=== PATIENT | male | born 1940 | race Hispanic/Latino ===

== ENCOUNTER → 2019-01-02 | Day surgery (SDC) | payer MEDICARE ==
[2018-12-31 13:34] LABS: BASOPHILS % 0.6 % (0.0-1.0); EOSINOPHILS # (AUTO) 0.1 (0.0-0.4); EOSINOPHILS % 0.9 % (0.0-6.0); HEMATOCRIT 43.1 % (38.2-49.6); HEMOGLOBIN 14.6 g/dL (14.0-18.0); LYMPHOCYTES # (AUTO) 1.3 (1.0-3.2); LYMPHOCYTES % 20.2 % (18.0-39.1); MEAN CORPUSCULAR HEMOGLOBIN 32.5 pg (28-32); MEAN CORPUSCULAR HGB CONC 33.9 g/dL (31-35); MONOCYTES # (AUTO) 0.6 (0.2-0.8); MONOCYTES % 9.6 % (4.4-11.3); NEUTROPHILS # (AUTO) 4.5 (2.1-6.9); NEUTROPHILS % 68.4 % (38.7-80.0); PLATELET COUNT 139 x10e3/uL (140-360); RED BLOOD COUNT 4.49 x10e6/uL (4.3-5.7); RED CELL DISTRIBUTION WIDTH 14.4 % (11.7-14.4)
[2018-12-31 13:43] LABS: INR 1.15; PROTHROMBIN TIME 15.3 seconds (11.9-14.5)
[2018-12-31 13:44] LABS: PARTIAL THROMBOPLASTIN TIME 28.7 seconds (23.8-35.5)
[2018-12-31 13:48] LABS: ALANINE AMINOTRANSFERASE 23 IU/L (0-55); ALBUMIN 3.8 g/dL (3.5-5.0); ALBUMIN/GLOBULIN RATIO 1.2 (0.8-2.0); ALKALINE PHOSPHATASE 74 IU/L (40-150); ANION GAP 12.7 mmol/L (8-16); BLOOD UREA NITROGEN 17 mg/dL (7-26); BUN/CREATININE RATIO 18 (6-25); CALCIUM 9.4 mg/dL (8.4-10.2); CARBON DIOXIDE 22 mmol/L (22-29); CHLORIDE 108 mmol/L (98-107); CREATININE, SERUM 0.95 mg/dL (0.72-1.25); EST GLOMERULAR FILTRATION RATE > 60 ML/MIN (60-); GLUCOSE 114 mg/dL (74-118); POTASSIUM 3.7 mmol/L (3.5-5.1); SODIUM 139 mmol/L (136-145)
--- NOTE | 2018-12-31 14:20 | Diagnostic Imaging Report ---
EXAMINATION: CHEST 2 VIEWS INDICATION: Pre-admit COMPARISON: None FINDINGS: TUBES and LINES: None. LUNGS: Lungs are moderately inflated. There is no evidence of pneumonia or pulmonary edema. Mild patchy dependent atelectasis. Opacity in the medial aspect of the right lung base likely reflects a combination of overlying ribs and pulmonary vessels. PLEURA: No pleural effusion or pneumothorax. HEART AND MEDIASTINUM: The cardiomediastinal silhouette is unremarkable. The aorta is ectatic with atherosclerotic calcifications. BONES AND SOFT TISSUES: No acute osseous abnormality. Partially seen lumbar spine hardware and lower thoracic spinal stimulator. UPPER ABDOMEN: No free air under the diaphragm. Surgical clips in the upper abdomen. IMPRESSION: No acute radiographic abnormality. Focal opacity in the medial aspect of the right lung base likely reflects a combination of overlying ribs and pulmonary vessels. Suggest follow-up chest radiograph in 3 months to assess for stability. Signed by: Dr. Jad Oconnor MD on 12/31/2018 2:17 PM
[~2019-01-02] MED LIST: ACETAMINOPHEN 1000 MG/100 ML IV ONE; ALLOPURINOL100 MG PO; ATORVASTATIN CA20 MG PO; BUPIVACAINE 0.25% 30ML SDV INJ ONE; BUPROPION HCL100 MG PO; CEFOXITIN 1GM/ D5W 50ML 50 ML IV ONE; FENTANYL CITRATE/PF 100MCG/2 ML INJ ONE; KEFLEX500 MG PO; LIDOCAINE HCL 1% LOCAL INJ 20 ML VIAL ONE; LIDOCAINE HCL 2% LOCAL INJ 5 ML SDV VIAL INJ ONE; LISINOPRIL10 MG PO; NEOSTIGMINE 1 MG/ML 10ML VIAL ONE; OMEPRAZOLE40 MG; ONDANSETRON HCL INJ 2MG/ML 2ML 2 MG/ML VIAL ONE; PAROXETINE HCL20 MG PO; PRIMIDONE1 GM; PROPOFOL IV EMULSION 10 MG/ML 20 ML VIAL ONE; SEVOFLURANE INHAL SOLN 250 ML PEN BTL ONE; TRAZODONE HCL100 MG; TYLENOL # 31 EA PO
--- OUTSIDE RECORDS SUMMARY | 2019-01-02 07:27 | XMS REPORT ---
Author [facility] Address Unknown Phone Unavailable Care Team Providers Care Timber Feller Name Role Phone IRVIN ROLLINS Unavailable Unavailable Problems This patient has no known problems. Allergies, Adverse Reactions, Alerts This patient has no known allergies or adverse reactions. Medications This patient has no known medications. Results Test Description Test Time Test Comments Text Results Atomic Results Result Comments CHEST 2 VIEWS 2018-12-31 14:11:00 [place] [address] Patient Name: CAMACHO GARCIA MR #: [id number] : 1940 Age/Sex: 78/M Req #: [id number] Adm Physician: Ordered by: IRVIN ROLLINS MD Report #: [id number] Location: OR Room/Bed: Procedure: [id number] DX/CHEST 2 VIEWS Exam Date: 12/31/18 Exam Time: 1300 REPORT STATUS: Signed EXAMINATION: CHEST 2 VIEWS INDICATION: Pre-admit COMPARISON: None FINDINGS: TUBES and LINES: None. LUNGS: Lungs are moderately inflated. There is no evidence of pneumonia or pulmonary edema. Mild patchy dependent atelectasis. Opacity in the medial aspect of the right lung base likely reflects a combination of overlying ribs and pulmonary vessels. PLEURA: No pleural effusion or pneumothorax. HEART AND MEDIASTINUM: The cardiomediastinal silhouette is unremarkable. The aorta is ectatic with atherosclerotic calcifications. BONES AND SOFT TISSUES: No acute osseous abnormality. Partially seen lumbar spine hardware and lower thoracic spinal stimulator. UPPER ABDOMEN: No free air under the diaphragm. Surgical clips in the upper abdomen. IMPRESSION: No acute radiographic abnormality. Focal opacity in the medial aspect of the right lung base likely reflects a combination of overlying ribs and pulmonary vessels. Suggest follow-up chest radiograph in 3 months to assess for stabili ty. Signed by: Dr. Birdie Adame MD on 12/31/2018 2:17 PM Dictated By: BIRDIE ADAME MD [id number] Transcribed By: OMAR on 12/31/18 1417 COPY TO: IRVIN ROLLINS MD
--- OUTSIDE RECORDS SUMMARY | 2019-01-02 07:27 | XMS REPORT | Clinical Summary ---
Author Author [facility] Address Unknown Phone Unavailable Care Team Providers Care Log Feeder Name Role Phone Rk Rose MD PCP Allergies Comments Active Allergy Reactions Severity Noted Date No Known Drug Allergies 03/01/2016 Medications End Date Status Medication Sig Dispensed Refills Start Date Active HYDROcodone-acetaminophen TK 1 T PO D 0 (NORCO) 5-325 mg per PRN 8 tablet Active traMADol (ULTRAM) 50 mg TK 1 T PO 0 tablet BID PRN 8 Active celecoxib (CeleBREX) 200 TAKE ONE 90 capsule 0 MG capsule CAPSULE BY 8 MOUTH EVERY DAY NEEDED FOR MILD PAIN Active RELISTOR 150 mg tablet TK 1 TO 3 TS 0 PO QD 8 Active metoprolol tartrate 75 mg Take by 0 tablet mouth. Active BESIVANCE 0.6 % PLACE 1 DROP 1 drops,suspension IN THE RIGHT 8 EYE BID Active PROLENSA 0.07 % PLACE 1 DROP 1 ophthalmic solution IN THE RIGHT 8 EYE QD Active loteprednol (LOTEMAX) 0.5 Lotemax 0.5 % 0 % ophthalmic suspension eye drops,suspens ion Active methylnaltrexone Relistor 150 0 (RELISTOR) 150 mg tablet mg tablet Take 1-3 tabs once a day Active FLUZONE HIGH-DOSE ADM 0.5ML IM 0 2017-, PF, 180 mcg/0.5 UTD 8 mL syringe IM injectionIndications: Chronic allergic rhinitis Active HYDROcodone-acetaminophen TK 1 T PO QD 0 (NORCO) 7.5-325 mg per 8 tablet 06/16/2019 Active montelukast (SINGULAIR) Take 1 tablet 90 tablet 3 10 mg tablet (10 mg total) 8 by mouth nightly. 07/20/2019 Active buPROPion XL (WELLBUTRIN Take 1 tablet 90 tablet 3 XL) 150 MG 24 hr (150 mg 8 tabletIndications: total) by Anxiety disorder, mouth daily. unspecified type 07/20/2019 Active lisinopril Take 1 tablet 90 tablet 3 (PRINIVIL,ZESTRIL) 20 mg (20 mg total) 8 tabletIndications: high by mouth blood pressure daily. 07/20/2019 Active traZODone (DESYREL) 100 Take 1 tablet 90 tablet 3 MG tablet (100 mg 8 total) by mouth nightly. 07/20/2019 Active allopurinol (ZYLOPRIM) Take 1 tablet 90 tablet 3 100 MG tablet (100 mg 8 total) by mouth daily. 07/20/2019 Active primidone (MYSOLINE) 50 Take 1 tablet 120 tablet 11 MG tablet (50 mg total) 8 by mouth 4 (four) times a day. 07/20/2019 Active PARoxetine (PAXIL) 20 MG Take 1 tablet 90 tablet 3 tablet (20 mg total) 8 by mouth every morning. 07/20/2019 Active atorvastatin (LIPITOR) 20 Take 1 tablet 90 tablet 3 MG tabletIndications: (20 mg total) 8 Hyperlipidemia, mixed by mouth daily. 07/20/2019 Active omeprazole (PriLOSEC) 20 Take 1 90 capsule 3 MG capsuleIndications: capsule (20 8 Gastroesophageal reflux mg total) by disease, esophagitis mouth daily. presence not specified Active buPROPion (WELLBUTRIN) 75 TAKE 1 60 tablet 0 MG tablet TABLET(75 MG) 9 BY MOUTH TWICE DAILY 07/17/2018 Discontinued traZODone (DESYREL) 100 TK 2 TS PO 1 MG tablet QHS 6 01/22/2018 Discontinued buPROPion (WELLBUTRIN) 75 Take 1 tablet 60 tablet 11 MG tablet (75 mg total) 7 by mouth 2 (two) times a day. 05/22/2018 Discontinued omeprazole (PriLOSEC) 20 Take 1 90 capsule 3 MG capsuleIndications: capsule (20 7 gastroesophageal reflux mg total) by disease mouth daily Indications: Gastroesophag eal Reflux. 06/18/2018 primidone (MYSOLINE) 50 Take 1 tablet 30 tablet 11 MG tablet (50 mg total) 7 by mouth nightly. 06/18/2018 Discontinued allopurinol (ZYLOPRIM) Take 1 tablet 90 tablet 3 100 MG tabletIndications: (100 mg 7 treatment to prevent total) by acute gout attack mouth daily Indications: Gout Prevention. 05/05/2018 Discontinued azelastine (ASTELIN) 137 1 spray into 30 mL 12 mcg (0.1 %) nasal each nostril 7 sprayIndications: 2 (two) times Seasonal allergic a day. Use in rhinitis due to pollen, each nostril unspecified chronicity as directed 04/18/2018 Discontinued lisinopril Take 2 180 tablet 3 (PRINIVIL,ZESTRIL) 10 mg tablets (20 8 tabletIndications: high mg total) by blood pressure mouth daily Indications: Hypertension. 07/17/2018 Discontinued PARoxetine (PAXIL) 20 MG Take 20 mg by 0 tablet mouth every morning. 07/17/2018 Discontinued atorvastatin (LIPITOR) 20 Take 1 tablet 90 tablet 3 MG tabletIndications: (20 mg total) 8 Hyperlipidemia, mixed by mouth daily. 05/26/2018 Discontinued esomeprazole (NexIUM) 40 Take by 0 MG capsule mouth. 05/05/2018 Discontinued celecoxib (CeleBREX) 200 Take by 0 MG capsule mouth. 6 01/22/2018 Discontinued traMADol ER (ULTRAM-ER) TK 1 T PO QD 0 200 mg 24 hr tablet 8 03/24/2018 Discontinued buPROPion XL (WELLBUTRIN Take 1 tablet 90 tablet 3 XL) 150 MG 24 hr (150 mg 8 tabletIndications: total) by Anxiety disorder, mouth daily. unspecified type 07/15/2018 Discontinued buPROPion XL (WELLBUTRIN Take 1 tablet 90 tablet 3 XL) 150 MG 24 hr (150 mg 8 tabletIndications: total) by Anxiety disorder, mouth daily. unspecified type 07/17/2018 Discontinued lisinopril Take 2 180 tablet 3 (PRINIVIL,ZESTRIL) 10 mg tablets (20 8 tabletIndications: high mg total) by blood pressure mouth daily. 05/05/2018 Discontinued varicella-zoster Shingrix (PF) 0 [id number], PF, (SHINGRIX, 50 mcg/0.5 mL PF,) 50 mcg/0.5 mL intramuscular suspension for suspension, reconstitution IM kit injection 07/17/2018 Discontinued omeprazole (PriLOSEC) 20 TAKE ONE 90 capsule 0 MG capsuleIndications: CAPSULE BY 8 Gastroesophageal reflux MOUTH EVERY disease, esophagitis DAY FOR GERD presence not specified 07/17/2018 Discontinued allopurinol (ZYLOPRIM) TAKE 1 TABLET 90 tablet 0 100 MG tablet BY MOUTH 8 DAILY FOR GOUT PREVENTION 07/20/2018 Discontinued omeprazole (PriLOSEC) 20 Take 2 90 capsule 0 MG capsuleIndications: capsules (40 8 Gastroesophageal reflux mg total) by disease, esophagitis mouth daily. presence not specified 11/04/2018 Discontinued buPROPion (WELLBUTRIN) 75 TAKE 1 60 tablet 0 MG tablet TABLET(75 MG) 8 BY MOUTH TWICE DAILY Status Hospital, Clinic, or Ordered Dose Route Frequency Start End Date Other Facility Date Administered Medication Ended cyanocobalamin injection 1000 mcg IM every 30 days 05/22/20 1,000 mcgIndications: B12 17 8 deficiency Ended methylPREDNISolone 80 mg IM once 06/16/20 acetate (DEPO-MEDROL) 18 8 injection 80 mgIndications: Chronic allergic rhinitis Active Problems Problem Noted Date Chronic allergic rhinitis 06/16/2018 Last Assessment & Plan: History and exam findings consistent with chronic allergic rhinitis, Medications per orders. Start singular every night. Follow-up in the office in 1 month. Nuclear sclerotic cataract of right eye 06/10/2018 Hyperlipidemia, mixed 11/17/2017 Vitamin D deficiency 11/17/2017 Nutritional deficiency 11/13/2017 Need for pneumococcal vaccine 2017 Chronic pain 2017 Seasonal allergic rhinitis due to pollen 06/18/2017 Pre-op exam 04/12/2017 Last Assessment & Plan: Cleared for cataract surgery given that he is at low moderate risk patient undergoing a low risk procedure.. EKG within normal findings. Anxiety 04/08/2017 GERD (gastroesophageal reflux disease) 04/08/2017 Last Assessment & Plan: Refilled medication. Stable. Continue current regimen. Primary osteoarthritis of right hip 04/08/2017 Primary osteoarthritis of right knee 04/08/2017 Right hip pain 04/08/2017 Sleep apnea 04/08/2017 Status post total right knee replacement 04/08/2017 Gastritis 04/08/2017 Last Assessment & Plan: Add H2 alessandra to evening regime -continue PPI Monitor symptoms. Follow up in 3 weeks. Restless leg syndrome 04/08/2017 Tremor 04/08/2017 Last Assessment & Plan: Essential tremor, however due to bradycardia, prefer avoiding beta blockers at this time. See neurology and cardiology for proper management of this condition. Pt agreeable with plan of care. Chronic bilateral low back pain without sciatica 03/18/2017 Overview: Sees Dr Ross for back pain. Chronic radicular pain of lower back 03/18/2017 Last Assessment & Plan: Pt completing the physical therapy. Symptoms are slightly improved. Has been seen by neuro and recently adjusted medications -will try Lyrica. Hypertension 03/05/2017 Last Assessment & Plan: Hypertension is controlled. Continue current treatment regimen. Blood pressure will be reassessed in 4 weeks. Other specified metabolic disorders 03/05/2017 Anxiety disorder 03/05/2017 Last Assessment & Plan: Psychological condition is stable. Continue current treatment regimen. Psychological condition will be reassessed in 4 weeks or as needed. Resolved Problems Problem Noted Date Resolved Date Medicare annual wellness visit, subsequent 11/13/2017 01/26/2018 Last Assessment & Plan: 77 y.o. male who was seen today for Medicare Wellness visit with no complaints. Depression screening performed: Negative. No Follow-up needed. Time Spent Assessing Depression: 15 min Functional Status: Mobility/Ambulation: Independent with mobility prior to admission in the home on all surfaces with no assistive devices for unlimited distances. ADL's: independent for UE/LE dressing, toileting, brush teeth, and washface with no assistive devices. Orientation, Memory, Problem Solving: independent Fall risk management: No action taken. Discussed CVD risk factors, dietary interventions, age-appropriate screenings, Immunizations. Care team list reviewed and updated. Advanced directives: has NO advanced directive - add't info requested. Abnormal thyroid blood test 05/15/2017 01/26/2018 Last Assessment & Plan: Asymptomatic from thyroid perspective. Normal antibody count. Normal T4, free. Monitor TSH, repeat in 2 months Encounters Care Team Description Date Type Specialty Alma Becerra MD 12/24/2018 Refill Neurology Alma Becerra MD 11/04/2018 Refill Neurology Alma Becerra MD 08/13/2018 Refill Neurology Rk Rose MD Gastroesophageal reflux disease, esophagitis presence not specified 07/20/2018 Refill Family Medicine Rk Rose MD Hypertension, unspecified type; Gastroesophageal reflux disease, esophagitis presence not specified; Hyperlipidemia, mixed 07/17/2018 Refill Family Rk Lynn MD Anxiety disorder, unspecified type; Hypertension, unspecified type; Gastroesophageal reflux disease, esophagitis presence not specified; Hyperlipidemia, mixed 07/15/2018 Refill Family Rk Lynn MD 06/18/2018 Refill Family Rk Lynn MD Chronic allergic rhinitis (Primary Dx) 06/16/2018 Office Visit Family Medicine Zina Escobar MD 06/12/2018 Anesthesia General Surgery Event Cody Mota MD PHACOEMULSIFICATION, CATARACT, WITH IOL IMPLANTATION RIGHT EYE 06/12/2018 Surgery General Surgery Cody Mota MD 06/12/2018 Hospital General Surgery Encounter Rk Rose MD Gastroesophageal reflux disease, esophagitis presence not specified 05/22/2018 Refill Family Rk Lynn MD Pre-op exam (Primary Dx) 05/05/2018 Office Visit Family Rk Lynn MD 05/01/2018 Telephone Family Medicine Tamar Astorga MA Hypertension, unspecified type 04/18/2018 Refill Family Rk Lynn MD Essential hypertension (Primary Dx); Anxiety disorder, unspecified type 03/24/2018 Office Visit Family Rk Lynn MD Anxiety disorder, unspecified type (Primary Dx); Essential hypertension 01/22/2018 Office Visit Family Medicine after 01/01/2018 Immunizations Name Dates Previously Given Next Due FLUZONE HIGH-DOSE PF 05/29/2018, 05/15/2017 Pneumococcal Conjugate 2017 13-Valent Zoster Vaccine 05/01/2018 Recombinant Family History Medical History Relation Name Comments Colon cancer Mother Heart disease Sister Heart disease Sister Relation Name Status Comments Father Mother Sister Sister Alive Social History Date Tobacco Use Types Packs/Day Years Used Never Smoker Smokeless Tobacco: Never Used Alcohol Use Drinks/Week oz/Week Comments Yes OCC Sex Assigned at Date Recorded Not on file Industry Job Start Date Occupation Not on file Not on file Not on file Travel End Travel History Travel Start No recent travel history available. Last Filed Vital Signs Time Taken Vital Sign Reading 06/16/2018 2:32 PM CDT Blood Pressure 129/80 06/16/2018 2:32 PM CDT Pulse 97 06/16/2018 2:32 PM CDT Temperature 37.1 C (98.8 F) 06/12/2018 10:29 AM CDT Respiratory Rate 16 06/16/2018 2:32 PM CDT Oxygen Saturation 98% - Inhaled Oxygen - Concentration 06/16/2018 2:32 PM CDT Weight 88.5 kg (195 lb) 06/16/2018 2:32 PM CDT Height 177.8 cm (5' 10") 06/16/2018 2:32 PM CDT Body Mass Index 27.98 Plan of Treatment Health Maintenance Due Date Last Done Comments PNEUMOCOCCAL 2004 POLYSACCHARIDE VACCINE AGE 65 AND OVER SHINGLES VACCINES (#2) 07/01/2018 05/01/2018 65+ PNEUMOCOCCAL VACCINE 2018 2017 (2 of 2 - PPSV23) INFLUENZA VACCINE 04/09/2019 05/29/2018, 05/15/2017, 05/15/2017 Implants Device Identifier Shelf Expiration Date Model / Serial / Lot Implanted Type Area Manufactur er 09/08/2022 SN60WF 210 / [id number] / [id number] Lens Iol Asprc Asymet Bicnvx Ant Intraocula Right: Eye WALE +21.0d 0deg 6x13mm - [id number] - r Lens [employer] [id number] Implant [employer] Implanted: Qty: 1 on 06/12/2018 by Cody Mota MD Procedures Comments Procedure Name Priority Date/Time Associated Diagnosis PHACOEMULSIFICATION, 06/12/2018 Age-related nuclear CATARACT, WITH IOL 9:20 AM CDT cataract of right eye IMPLANTATION Special Needs SN60WF +21.0 COMPREHENSIVE METABOLIC Routine 05/19/2018 Pre-op exam PANEL 12:17 PM CDT CBC WITH PLATELET AND Routine 05/19/2018 Pre-op exam DIFFERENTIAL 12:17 PM CDT PROTHROMBIN TIME WITH INR Routine 05/19/2018 Pre-op exam 12:17 PM CDT ECG 12-LEAD Routine 05/05/2018 Pre-op exam 2:39 PM CDT after 01/01/2018 Results * Prothrombin time with INR (05/19/2018 12:17 PM CDT) INR 1.2 (H) [facility] Comment: [place] Reference Range 0.9-1.1 Moderate-intensity Warfarin Therapy 2.0-3.0 Higher-intensity Warfarin Therapy 3.0-4.0 Prothrombin time 12.4 (H) 9.0 - 11.5 sec [facility] Comment: [place] For more information on this test, go to: http://education.[employer].com/faq/UAE439 Specimen Blood Resulting Agency Comment Performing Organization Information: Site ID: [id number] Name: [facility] Address: [address] [place] [id number] Director: Tory Diaz Performing Organization Address City/State/Zipcode [place] [address] * CBC with platelet and differential (05/19/2018 12:17 PM CDT) WBC 6.6 3.8 - 10.8 Thousand/uL [facility] [place] RBC 4.55 4.20 - 5.80 Million/uL [facility] [place] HGB 14.4 13.2 - 17.1 g/dL [facility] [place] HCT 42.6 38.5 - 50.0 % [facility] [place] MCV 93.6 80.0 - 100.0 fL [facility] [place] MCH 31.6 27.0 - 33.0 pg [facility] [place] MCHC 33.8 32.0 - 36.0 g/dL [facility] [place] RDW 14.2 11.0 - 15.0 % [facility] [place] Platelet count 151 140 - 400 Thousand/uL [facility] [place] MPV 13.2 (H) 7.5 - 12.5 fL [facility] Neutrophils, absolute 4,217 1,500 - 7,800 cells/uL [facility] [place] Lymphocytes, absolute 1,683 850 - 3,900 cells/uL [facility] [place] Monocytes, absolute 548 200 - 950 cells/uL [facility] [place] Eosinophils, absolute 99 15 - 500 cells/uL [facility] [employer] [place] Basophils, absolute 53 0 - 200 cells/uL [facility] [place] Neutrophils 63.9 % [facility] Lymphocytes 25.5 % [facility] Monocytes 8.3 % [facility] Eosinophils 1.5 % [facility] Basophils + RC 0.8 % [facility] [place] Specimen Blood Resulting Agency Comment Performing Organization Information: Site ID: [id number] Name: [facility] Address: [address] [place] [id number] Director: Tory Diaz Performing Organization Address City/State/Zipcode Phone Number [facility] [place] [address] [place], [place] [phone] * Comprehensive metabolic panel (05/19/2018 12:17 PM CDT) Glucose 99 65 - 99 mg/dL [facility] Comment: [place] Fasting reference interval BUN, whole blood 13 7 - 25 mg/dL [facility] Creatinine 1.00 0.70 - 1.18 mg/dL [facility] Comment: [place] For patients >49 years of age, the reference limit for Creatinine is approximately 13% higher for people identified as -Tajik. EGFR Non-Afr. [place]ik 72 > OR=60 mL/min/1.73m2 [facility] EGFR 83 > OR=60 mL/min/1.73m2 [facility] BUN/creatinine ratio NOT APPLICABLE 6 - 22 (calc) [facility] Sodium 142 135 - 146 mmol/L [facility] Potassium 4.3 3.5 - 5.3 mmol/L [facility] [place] Chloride 105 98 - 110 mmol/L [facility] [place] CO2 25 20 - 32 mmol/L [facility] [place] Calcium 9.9 8.6 - 10.3 mg/dL [facility] [place] Protein 6.9 6.1 - 8.1 g/dL [facility] [place] Albumin, S 4.3 3.6 - 5.1 g/dL [facility] [place] Globulin, total 2.6 1.9 - 3.7 g/dL (calc) [facility] Albumin/globulin ratio 1.7 1.0 - 2.5 (calc) [facility] [place] Total bilirubin 0.9 0.2 - 1.2 mg/dL [facility] [place] Alkaline phosphatase 116 (H) 40 - 115 U/L [facility] [place] AST 25 10 - 35 U/L [facility] [place] ALT 45 9 - 46 U/L [facility] [place] Specimen Blood Resulting Agency Comment Performing Organization Information: Site ID: [id number] Name: [facility] Address: [address] [place] [address] Director: Tory Diaz Performing Organization Address City/[facility] Phone Number [employer] [place] [address] [place], [place] [phone] * ECG 12 lead (05/05/2018 2:39 PM CDT) Ventricular rate 78 [facility] Atrial rate 78 [facility] OK interval 160 [facility] QRSD interval 88 [facility] QT interval 366 [facility] QTC interval 417 [facility] P axis 1 61 [facility] QRS axis 1 16 [facility] T wave axis 43 [facility] EKG impression Normal sinus rhythm-Normal [facility] MUSE ECG-In automated comparison with ECG of 11-JUN-2013 14:14,-Vent. rate has increased BY 31 BPM- Performing Organization Address City/[facility] Phone Number [facility] [employer] [address] [place] [address] after 01/01/2018 Insurance Payer Benefit Subscriber ID Type Phone Address Plan / Group HUMANA MEDICARE HUMANA xxxxxxxxx PPO MEDICARE PPO/PFFS/E [facility] (Home) [place] [address] Advance Directives Patient has advance care planning documents on file. For more information, paris rojo contact: George Higgins [address] [place] [address]
--- OUTSIDE RECORDS SUMMARY | 2019-01-02 07:27 | XMS REPORT | Summary of Care ---
Author ZACHARY Alcaraz M.D. Organization Unknown Address Unknown Phone Unavailable Care Team Providers Care Stock Turner Name Role Phone ZACHARY ABREU M.D. Unavailable Unavailable Elaine Kendrick M.A. Unavailable Unavailable Unavailable Unavailable Functional Status Name Dates Details Functional status health issues are not documented Status: Name Dates Details Cognitive status health issues are not documented Status: Problems Name Dates Details Sleep apnea (780.57, G47.30) Status: Active Hypertension (401.9, I10) Status: Active Anxiety (300.00, F41.9) Status: Active Mild acid reflux (530.81, K21.9) Status: Active Primary osteoarthritis of right knee (715.16, M17.11) Status: Active Right hip pain (719.45, M25.551) Status: Active Primary osteoarthritis of right hip (715.15, M16.11) Status: Active Status post total right knee replacement (V43.65, Z96.651) Status: Active Medications Name Dates Details TraZODone HCl TABS Active NexIUM 40 MG Oral Capsule Delayed Release * Refills: 0 Active Metoprolol Tartrate TABS * Refills: 0 Active [place] 10-325 MG Oral Tablet * Refills: 0 Active Celecoxib 200 MG Oral Capsule TAKE ONE CAPSULE BY MOUTH EVERY DAY WITH MEALS * Quantity: 30 Refills: 0 ZACHARY ABREU M.D. * Start : 05-Jul-2016 Active Allergies and Adverse Reactions Name Dates Details No Known Allergies (Allergy) Status: Active Procedures Procedure Dates Details Procedures not documented Immunization Name Dates Details Immunizations not documented Family History Name Dates Details Family history of malignant neoplasm (V16.9, Z80.9) Status: Active Name Dates Details Family history of cardiac disorder (V17.49, Z82.49) Status: Active Family history of hypertension (V17.49, Z82.49) Status: Active Family history of cerebrovascular accident (V17.1, Z82.3) Status: Active Social History Name Dates Details - Status: Name Dates Details Never smoker Vital Signs Date Test Result Details No Known Vitals to report Results Date Description Value Details Results not documented Plan of Care Name Dates Details Planned Observations Planned Goals not documented Instructions Name Dates Details Instructions not documented Encounters Appointment; TE PARRA M.D. Encounter Diagnosis: Problem not documented On: 28-May-2016 14:30
[2019-01-02 14:30] VITALS: BP 131/78
--- NOTE | 2019-01-02 20:56 | Operative Report ---
DATE OF PROCEDURE: 01/02/2019 SURGEON: Santo Malloy MD PREOPERATIVE DIAGNOSIS: Phimosis. POSTOPERATIVE DIAGNOSIS: Phimosis. OPERATION PERFORMED: Adult circumcision. ANESTHESIA: General. INDICATIONS: This patient is a 78-year-old male, who has been having problems with urine getting stuck behind his foreskin and it starts stripping and he says it smells bad and it is bothering him a great deal. For further details, please refer to the history and physical. DESCRIPTION OF PROCEDURE: His procedure was done in the following fashion: The patient was taken to the operating room and dressed and draped with Hibiclens in the supine position in the usual fashion. A sleeve circumcision was performed. First, I used a marking pen to elba out the proximal end of the incision and then a circumferential incision was made using the scalpel. Once this incision was made, the foreskin was retracted and I made the subcoronal incision. Care was taken to avoid injury to the urethra and to avoid taking off too much skin. Once the sleeve was created, hemostats were placed proximally and distally on the sleeve and the sleeve was divided. The sleeve was then dissected off the penis. Hemostasis was obtained with electrocautery with using a hemostat to lease picker on the bleeding vessels, and then using electrocautery set at 30 for coagulation. When hemostasis appeared to be good, the skin was closed in four quadrant fashion using interrupted 3-0 chromic. The base of the penis was anesthetized circumferentially with 0.25% lidocaine. A triple antibiotic dressing was applied. The patient tolerated the procedure well and left the operating in good condition. There will be no sex for at least 2-6 weeks. He can take the dressing off and wash the wound with soap and water in the morning. He is being sent home on Keflex 500 mg one p.o. four times daily #28 and Tylenol No. 3 one p.o. q.6 hours p.r.n. pain #28. He will have return appointment to see me again in two weeks. Santo Malloy MD BRISEIDA/MODL /[id number] cc: Santo Malloy MD
== END | disposition home or self-care (01) ==
LOC: OR 07:20
PROVIDERS: ATTEND Urology
DX: N47.1 Phimosis (principal); N47.7 Other inflammatory diseases of prepuce; N40.1 Benign prostatic hyperplasia with lower urinary tract symptoms; R35.1 Nocturia; G47.33 Obstructive sleep apnea (adult) (pediatric); I10 Essential (primary) hypertension; K21.9 Gastro-esophageal reflux disease without esophagitis; K64.4 Residual hemorrhoidal skin tags; M10.9 Gout, unspecified; M51.25 Other intervertebral disc displacement, thoracolumbar region; M54.2 Cervicalgia; E78.00 Pure hypercholesterolemia, unspecified; F32.9 Major depressive disorder, single episode, unspecified; F06.4 Anxiety disorder due to known physiological condition; Z01.812 Encounter for preprocedural laboratory examination; Z01.818 Encounter for other preprocedural examination; Z89.512 Acquired absence of left leg below knee; H35.30 Unspecified macular degeneration
CPT/HCPCS: 36415; 54161; 71046; 80053; 85025; 85610; 85730; 88304; J0131; J2001 ×2; J2405; J2704; J2710